=== PATIENT | female | born 1950 | race Caucasian/White ===

== ENCOUNTER 2021-08-29 14:00 | Outpatient (CLI) | payer MEDICARE | END 2021-08-29 14:01 | disposition home or self-care (01) | LOC: CSHMAMMO 14:00 | PROVIDERS: ATTEND Nurse Practitioner Family | DX: Z12.31 Encounter for screening mammogram for malignant neoplasm of breast (principal); Z90.12 Acquired absence of left breast and nipple | CPT/HCPCS: 77063; 77067 ==

== ENCOUNTER 2022-10-13 12:45 | Outpatient (CLI) | payer MEDICARE | END 2022-10-13 12:46 | disposition home or self-care (01) | LOC: CSHMAMMO 12:45 | PROVIDERS: ATTEND Nurse Practitioner Family | DX: Z12.31 Encounter for screening mammogram for malignant neoplasm of breast (principal); R92.1 Mammographic calcification found on diagnostic imaging of breast; Z90.12 Acquired absence of left breast and nipple | CPT/HCPCS: 77063; 77067 ==

== ENCOUNTER 2024-04-09 13:16 | Outpatient (CLI) | payer MEDICARE | END 2024-04-09 13:17 | disposition home or self-care (01) | LOC: CSHMAMMO 13:16 | PROVIDERS: ATTEND Nurse Practitioner Family | DX: Z12.31 Encounter for screening mammogram for malignant neoplasm of breast (principal); Z85.3 Personal history of malignant neoplasm of breast; Z90.12 Acquired absence of left breast and nipple | CPT/HCPCS: 77063; 77067 ==

== ENCOUNTER 2025-06-08 13:03 | Outpatient (CLI) | payer MEDICARE | END 2025-06-08 13:04 | disposition home or self-care (01) | LOC: CSHMAMMO 13:03 | PROVIDERS: ATTEND Nurse Practitioner Family | DX: Z12.31 Encounter for screening mammogram for malignant neoplasm of breast (principal); Z80.3 Family history of malignant neoplasm of breast; Z85.3 Personal history of malignant neoplasm of breast; Z90.12 Acquired absence of left breast and nipple | CPT/HCPCS: 77063; 77067 ==